=== PATIENT | female | born 1990 | race Caucasian/White ===

== ENCOUNTER 2017-03-18 05:53 | Day surgery (SDC) | payer OTHER ==
[~2017-03-18] VITALS: Ht 167.6 cm; Wt 140.6 kg
[~2017-03-18 05:53] MED LIST: IBUPROFEN800 MG PO; PRENATAL TABLE1 EAC3 PO; TYLENOL EXTRA500 MG PO
[2017-03-18 07:10] VITALS: BP 150/60
[2017-03-18] MEDS ORDERED: COLACE100 MG PO (09:13)
[2017-03-18] MEDS ORDERED: PERCOCET 5/31 TABLET PO (09:13)
[2017-03-18 09:45] VITALS: BP 100/60
[2017-03-18] MEDS ORDERED: TRAMADOL HCL50 MG PO (10:17)
== END 2017-03-18 11:13 | disposition home or self-care (01) ==
LOC: SDC 05:53 → 2SOUTH 10:01 → EDSTATUS 10:02 → SDC 10:03
DX: K80.10 Calculus of gallbladder with chronic cholecystitis without obstruction (principal); K76.0 Fatty (change of) liver, not elsewhere classified; K66.0 Peritoneal adhesions (postprocedural) (postinfection); E66.01 Morbid (severe) obesity due to excess calories; Z68.42 Body mass index [BMI] 45.0-49.9, adult; K80.50 Calculus of bile duct without cholangitis or cholecystitis without obstruction; R74.0 Nonspecific elevation of levels of transaminase and lactic acid dehydrogenase [LDH]; Z83.49 Family history of other endocrine, nutritional and metabolic diseases; Z83.3 Family history of diabetes mellitus; Z87.891 Personal history of nicotine dependence; Z88.1 Allergy status to other antibiotic agents
CPT/HCPCS: 88307; 88313; J0131; J1100; J1580; J1885; J2250; J2405; J2710; J3010; J7050

== ENCOUNTER 2018-06-11 15:57 | Inpatient (IN) | payer OTHER ==
[2018-06-11] VITALS (9 sets, daily range): BP systolic 117–141; BP diastolic 59–87
[~2018-06-11] VITALS: Ht 165.1 cm; Wt 145.0 kg
[~2018-06-11 15:57] MED LIST changes: +COLACE100 MG PO; +PERCOCET 5/31 TABLET PO; +TRAMADOL HCL50 MG PO
[2018-06-11] MEDS ORDERED: PRENATAL TABLE1 EAC3 PO (17:26)
[2018-06-11] MEDS ORDERED: GLYBURIDE5 MG PO (17:27)
[2018-06-11] MEDS ORDERED: GLYBURIDE2.5 MG PO (17:27)
[2018-06-11 17:55] LABS: BASOPHIL (%) 0.1 % (0-1); EOSINOPHIL (%) 0.8 % (0-5); EOSINOPHIL COUNT 0.1 K/uL (0-0.3); HEMATOCRIT 36.9 % (36.0-46.0); HEMOGLOBIN 12.1 G/DL (11.9-15.5); IMMATURE GRANULOCYTE (%) 0.4 % (0.0-0.7); LYMPHOCYTE (%) 12.7 % (15-42); LYMPHOCYTE COUNT 1.8 K/uL (1.0-2.8); MCH 26.2 PG (29.0-34.0); MCHC 32.8 G/DL (30.0-36.0); MONOCYTE (%) 6.3 % (3-12); MONOCYTE COUNT 0.9 K/uL (0-0.8); NEUTROPHIL (%) 79.7 % (45-76); NEUTROPHIL COUNT 11.3 K/uL (1.8-6.4); PLATELET COUNT 342 K/uL (156-360); RBC DIS.WIDTH-CV 14.2 % (11.8-14.6); RBC DIS.WIDTH-SD 40.9 % (39-53); RED BLOOD COUNT 4.61 M/uL (3.80-5.20); WHITE BLOOD COUNT 14.2 K/uL (4.1-10.2)
[2018-06-11 18:17] LABS: INTER. NORMALIZED RATIO 1.1
[2018-06-11 18:19] LABS: PTT 26.5 SEC (25-37)
[2018-06-11 18:22] LABS: ALBUMIN 3.1 g/dL (3.2-4.8); CHLORIDE 104 mEq/L (99-109); FIBRINOGEN 896 mg/dL (150-450); POTASSIUM 3.9 mEq/L (3.7-5.4); SODIUM 134 mEq/L (136-147)
[2018-06-11 18:25] LABS: GLUCOSE 67 mg/dL (70-99); TOTAL PROTEIN 7.3 g/dL (6.4-8.3)
[2018-06-11 18:27] LABS: TOTAL BILIRUBIN 0.4 mg/dL (0.0-1.0)
[2018-06-11 18:28] LABS: ALKALINE PHOSPHATASE 248 IU/L (3-129); CREATININE 0.7 mg/dL (0.6-1.3); GFR ESTIMATE (CALCULATED) > 59 mL/min/
[2018-06-11 18:29] LABS: UREA NITROGEN (BUN) 6 mg/dL (9-23)
[2018-06-11 18:30] LABS: AST (GOT) 28 IU/L (2-34)
[2018-06-11 18:31] LABS: ALT (GPT) 26 IU/L (3-49)
[2018-06-11 18:46] LABS: AMPHETAMINE NEGATIVE (500 ng/mL); BARBITURATES NEGATIVE (200 ng/mL); BENZODIAZEPINES NEGATIVE (150 ng/mL); BUPRENORPHINE NEGATIVE (10 ng/mL); COCAINE NEGATIVE (150 ng/mL); METHADONE NEGATIVE (200 ng/mL); METHAMPHETAMINE NEGATIVE (500 ng/mL); OPIATES (MORPHINE) NEGATIVE (100 ng/mL); OXYCODONE NEGATIVE (100 ng/mL); PHENCYCLIDINE NEGATIVE (25 ng/mL); PROPOXYPHENE NEGATIVE (300 ng/mL); THC CANNABINOIDS NEGATIVE (50 ng/mL); TRICYCLIC ANTIDEPRESSANTS NEGATIVE (300 ng/mL)
[2018-06-12] VITALS (7 sets, daily range): BP systolic 118–135; BP diastolic 58–78
[2018-06-12] MEDS ORDERED: IBUPROFEN800 MG PO (08:26)
== END 2018-06-12 10:00 | disposition home or self-care (01) | DRG 775 ==
LOC: LDRP-OP 15:57 → 2WEST 16:03 → LDRP-OP 07-22 12:24
PROVIDERS: Advanced Practice Midwife
DX: O36.4XX0 Maternal care for intrauterine death, not applicable or unspecified (principal); O77.0 Labor and delivery complicated by meconium in amniotic fluid; O36.63X0 Maternal care for excessive fetal growth, third trimester, not applicable or unspecified; O24.425 Gestational diabetes mellitus in childbirth, controlled by oral hypoglycemic drugs; O99.354 Diseases of the nervous system complicating childbirth; G43.909 Migraine, unspecified, not intractable, without status migrainosus; O99.62 Diseases of the digestive system complicating childbirth; K76.0 Fatty (change of) liver, not elsewhere classified; O99.214 Obesity complicating childbirth; E66.01 Morbid (severe) obesity due to excess calories; Z68.42 Body mass index [BMI] 45.0-49.9, adult; Z91.11 Patient's noncompliance with dietary regimen; Z88.1 Allergy status to other antibiotic agents; Z87.891 Personal history of nicotine dependence; Z3A.38 38 weeks gestation of pregnancy; Z37.1 Single stillbirth
CPT/HCPCS: 80053; 85025; 85384; 85610; 85730; 88307; C1755; G0378; J3010; J7120